=== PATIENT | female | born 1990 | race African-American/Black ===

== ENCOUNTER 2017-02-08 10:11 | Emergency (ER) | payer OTHER, SELFPAY ==
--- NOTE | 2017-02-08 12:27 | RAD ---
LEFT INDEX FINGER 3 VIEWS: Date: 02/08/17 HISTORY: Injury to finger. FINDINGS: There is a nondisplaced avulsion type fracture involving the volar aspect of the base of the proxima l phalanx of the index finger. IMPRESSION: Minimally displaced avulsion fracture to volar side of base of middle phalanx. POS: [facility]
== END 2017-02-08 12:00 | disposition home or self-care (01) ==
LOC: ERS 10:11
DX: O9A.211 Injury, poisoning and certain other consequences of external causes complicating pregnancy, first trimester (principal); S62.621A Displaced fracture of middle phalanx of left index finger, initial encounter for closed fracture; O99.511 Diseases of the respiratory system complicating pregnancy, first trimester; J45.909 Unspecified asthma, uncomplicated; O99.341 Other mental disorders complicating pregnancy, first trimester; F31.9 Bipolar disorder, unspecified; F41.9 Anxiety disorder, unspecified; Z3A.09 9 weeks gestation of pregnancy; W22.8XXA Striking against or struck by other objects, initial encounter

== ENCOUNTER 2017-02-17 08:14 | Emergency (ER) | payer OTHER ==
[2017-02-17 08:39] LABS: #Basophils 0.1 thou/uL (0.0-0.2); #Eosinphils 0.1 thou/uL (0.0-0.7); #Lymphocytes 1.5 thou/uL (1.20-3.40); #Monocytes 0.3 thou/uL (0.11-0.59); #Neutrophils 2.2 thou/uL (1.40-6.50); %Basophils 1.3 % (0.0-1.0); %Eosinophils 2.3 % (0.0-10.0); %Lymphocytes 35.8 % (21.0-51.0); %Monocytes 7.8 % (0.0-10.0); Hematocrit 40.2 % (36.0-47.0); Mean Platelet Volume 8.6 fL (7.4-10.4); Red Blood Cell (RBC) Count 4.14 mill/uL (4.20-5.40); White Blood Cell (WBC) Count 4.2 thou/uL (4.8-10.8)
[2017-02-17 09:00] LABS: ALT (SGPT) 9 U/L (8-55); AST (SGOT) 12 U/L (5-34); Alkaline Phosphatase 42 U/L (40-150); Anion Gap 10 mmol/L (10-20); BUN (Urea Nitrogen) 6 mg/dL (7.0-18.7); Bilirubin, Total 0.2 mg/dL (0.2-1.2); Calc. Creatinine Clearance 0 mL/min (70-130); Calcium 8.9 mg/dL (7.8-10.44); Carbon Dioxide 21 mmol/L (22-29); Chloride 108 mmol/L (98-107); Estimated GFR-MDRD Greater than 90; Globulin 3.3 g/dL (2.4-3.5); Protein, Total 7.1 g/dL (6.0-8.3)
[2017-02-17 09:29] LABS: Bilirubin Negative (Negative); Blood, Urine Negative (Negative); Glucose, Urine (Dipstick) Negative (Negative); Ketone, Urine Negative (Negative); Nitrite Negative (Negative); Protein, Urine (Dipstick) Negative (Neg-Trace); Urobilinogen 0.2 mg/dL (0.2-1.0)
[2017-02-17 09:32] LABS: Bacteria/HPF None Seen HPF (None Seen); Hyaline Casts/LPF 0-3 HYALINE CAST LPF (0-3 Hyaline); RBC/HPF 0-3 HPF (0-3); Squamous Epithelial 0-3 HPF (0-3)
== END 2017-02-17 09:52 | disposition home or self-care (01) ==
LOC: ERS 08:14
DX: O23.41 Unspecified infection of urinary tract in pregnancy, first trimester (principal); O99.511 Diseases of the respiratory system complicating pregnancy, first trimester; J45.909 Unspecified asthma, uncomplicated; F31.9 Bipolar disorder, unspecified; O99.341 Other mental disorders complicating pregnancy, first trimester; F41.9 Anxiety disorder, unspecified; Z3A.11 11 weeks gestation of pregnancy
CPT/HCPCS: 36415; 80053; 81003; 81015; 81025; 85025; 99284

== ENCOUNTER 2017-04-24 09:15 | Day surgery (SDC) | payer MEDICAID, OTHER ==
[2017-04-24 09:59] VITALS: BP 140/77; TEMP 98.2; BMI 27.6
--- NOTE | 2017-04-24 10:46 | PDOC.LDHP ---
Labor and Delivery H&P Chief complaint: other (Seen at 1040: Lower pelvic pressure and spotting. Hx of nausea and some vomiting with diarhea last 24 hours.) HPI: 26 year old AA with no established PNC yet. At 20 weeks 3 days by LMP (no pror sono) presents to L&D with pelvic pressure. Had FM, no VB, no recent sex nor trauma. No HX Labor. No fevers at home. 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 Current gestational age (weeks): 20 (3 days) Due date: 09/08/17 Dating criteria: last menstrual period Grav: 4 Para: 3 (No HX PTB) Current complications: none Abnormal US findings: No (Not done yet) Current medications: none Previous surgical history: other (Broken finger repair) Allergies/Adverse Reactions: Allergies Allergy/AdvReac Type Severity Reaction Status Date / Time ibuprofen [From Motrin] Allergy Severe Anaphylaxis Verified 03/28/15 15:07 peanut Allergy Intermediate Swollen Verified 03/28/15 15:07 Lips Social history: none - Physical Exam Vital signs reviewed and normal: yes Abnormal vital signs: First BP was 140/77 Heart: RRR Lungs: CTAB Abdomen: gravid Extremeties: no edema [place] contractions every: none. FHTs by Doppler 140s - Vaginal Exam cm dilated: 0 Effacement: 25% Station: -1 - Assessment 20 weeks LAP likely discomforts of . N/V episode may be viral episode. No acute illness noted now and clinically well. - Plan Plan: observation in L&D, other (1. CBC, CMP, Cath UA. Order Vaginal GC/CHL ( collecetd by me). 2. HIV/RPR/Hep B collected for record. 3. Sono for EGA, placenta location, cervical length 4. No evidence acute illness now. 5. Plan D/ W patient. RN present for bedside eval.)
[2017-04-24 11:33] LABS: #Eosinphils 0.1 thou/uL (0.0-0.7); #Lymphocytes 1.6 thou/uL (1.20-3.40); #Monocytes 0.3 thou/uL (0.11-0.59); #Neutrophils 2.1 thou/uL (1.40-6.50); %Basophils 0.7 % (0.0-1.0); %Lymphocytes 39.9 % (21.0-51.0); %Monocytes 6.8 % (0.0-10.0); Hematocrit 37.2 % (36.0-47.0); Mean Platelet Volume 8.5 fL (7.4-10.4); Red Blood Cell (RBC) Count 3.89 mill/uL (4.20-5.40); White Blood Cell (WBC) Count 4.1 thou/uL (4.8-10.8)
[2017-04-24 11:52] LABS: ALT (SGPT) 8 U/L (8-55); AST (SGOT) 12 U/L (5-34); Alkaline Phosphatase 49 U/L (40-150); Anion Gap 12 mmol/L (10-20); BUN (Urea Nitrogen) 5 mg/dL (7.0-18.7); Bilirubin, Total 0.2 mg/dL (0.2-1.2); Calc. Creatinine Clearance 158 mL/min (70-130); Calcium 9.1 mg/dL (7.8-10.44); Carbon Dioxide 23 mmol/L (22-29); Chloride 105 mmol/L (98-107); Estimated GFR-MDRD Greater than 90; Globulin 3.5 g/dL (2.4-3.5)
[2017-04-24 12:16] LABS: Bilirubin Negative (Negative); Blood, Urine Negative (Negative); Glucose, Urine (Dipstick) Negative (Negative); Ketone, Urine Negative (Negative); Nitrite Negative (Negative); Protein, Urine (Dipstick) Negative (Neg-Trace); Urobilinogen 0.2 mg/dL (0.2-1.0)
--- NOTE | 2017-04-24 12:18 | ULT ---
OB ULTRASOUND: HISTORY: Evaluate placental location and weight. COMPARISON: None. TECHNIQUE: Multiplanar haji-scale and color Doppler images were obtained in a ultrasound. FINDINGS: There is a single live intrauterine with a heart rate of 158 beats per minute. A loree vey was performed, which was unremarkable. The face was not well visualized. The head, intracranial structures, heart, stomach, kidneys, umbilical cord, umbilical cord insertion, spine, and lower extr emities are normal in appearance. Estimated weight is 366 g. The average age of the fetus, ba sed on today's examination, is 20 weeks and 2 days. The following measurements were taken and dates based off these measures are as follows: BPD: 4.72 cm (20 weeks and 2 days). HC: 17.89 cm (20 weeks and 2 days). AC: 15.43 cm (20 weeks and 4 days). FL: 3.41 cm (20 weeks and 5 days). The placenta is posterior in location without evidence of placenta previa. Amniotic fluid volume is subjectively within normal limits. The cervix is normal in length, measurin g 3.6 cm. IMPRESSION: Single live intrauterine with estimated age 20 weeks and 2 days. POS: [facility]
[2017-04-24 12:22] LABS: Bacteria/HPF None Seen HPF (None Seen); Hyaline Casts/LPF 4-6 HYALINE CAST LPF (0-3 Hyaline); RBC/HPF 0-3 HPF (0-3)
[2017-04-24 12:37] LABS: Yeast-All Forms None Seen HPF (None Seen)
--- NOTE | 2017-04-24 12:44 | PDOC.EVN ---
Event Note - Event Note Event Note: Lab and sono check: CBC and CMP, and Cath UA are normal. Sono is s=D, normal cervical length, no previa. BPs mildle elevated at 130-140 systolics, may be mild CHTN. No need for meds now. Recommend BP check in 2 weeks. [facility]
--- NOTE | 2017-04-26 11:33 | PDOC.EVN ---
Event Note - Event Note Event Note: on 04/26/2017 at 1130: I checked the patients GC/CHL result from 04/24. Chlamydia PCR was positive. She has not been treated. I just called the number on her intake form ([phone]) and left a VM to call [phone] (L&D) and ask for MD operations lead for results.
--- NOTE | 2017-04-26 12:13 | PDOC.EVN ---
Event Note - Event Note Event Note: 04/26/17 at 1215: Patient called L&D, and I gave her results. She has had chlamydia before as a teen. Risks during reviewed: including PTL and PPROM. [address] [facility]. [phone]. I will call in Zithromax 1 gram pills (4 pills). Info given.
== END 2017-04-24 13:05 | disposition home or self-care (01) ==
LOC: L&D/OP 09:15
PROVIDERS: ATTEND Obstetrics & Gynecology
DX: O26.852 Spotting complicating pregnancy, second trimester (principal); O99.89 Other specified diseases and conditions complicating pregnancy, childbirth and the puerperium; R10.2 Pelvic and perineal pain; Z88.6 Allergy status to analgesic agent; Z91.010 Allergy to peanuts; Z3A.20 20 weeks gestation of pregnancy
CPT/HCPCS: 36415; 76805; 80053; 81003; 81015; 85025; 86780; 87340; 87389; 87491; 87591; A4353

== ENCOUNTER 2018-09-24 22:37 | Emergency (ER) | payer OTHER, SELFPAY | END 2018-09-25 00:17 | disposition home or self-care (01) | LOC: ERS 22:37 | DX: J02.9 Acute pharyngitis, unspecified (principal); F41.9 Anxiety disorder, unspecified; F32.9 Major depressive disorder, single episode, unspecified; D50.0 Iron deficiency anemia secondary to blood loss (chronic); J45.909 Unspecified asthma, uncomplicated | CPT/HCPCS: 87081; 87430; 99283 ==